=== PATIENT | male | born 1955 | race Caucasian/White ===

== ENCOUNTER 2018-04-09 20:29 | Emergency (ER) | payer OTHER ==
--- NOTE | 2018-04-09 20:47 | PDOC ---
Rapid Medical Evaluation Time Seen by Provider: 04/09/18 20:46 Medical Evaluation: Allergies Allergy/AdvReac Type Severity Reaction Status Date / Time Penicillins Allergy Verified 03/07/15 14:49 04/09/18 20:48 This is a 63 year old male with CAD s/p stent, HTN, and kidney stones who presents with one day of left flank pain and dysuria. No fevers/chills. Alert, oriented, some distress secondary to pain. + Left flank tenderness. -Labs including CBC, CMP, UA/culture -To Main ED for further evaluation Patient vomited in [facility] bathroom. 04/09/18 20:59
[2018-04-09 20:51] VITALS: BP 145/70; PULSE 70; TEMP 98.1; BMI 25.0
[2018-04-09 21:31] LABS: URINE APPEARANCE CLEAR; URINE BILIRUBIN NEGATIVE (<2.0 mg/dL); URINE COLOR LTYELLOW; URINE GLUCOSE (UA) NEGATIVE (NEGATIVE); URINE KETONE NEGATIVE (NEGATIVE); URINE LEUK ESTERASE NEGATIVE (NEGATIVE); URINE NITRITE NEGATIVE (NEGATIVE); URINE PROTEIN NEGATIVE (NEGATIVE); URINE UROBILINOGEN NEGATIVE mg/dL (0.2-1.0)
[2018-04-09 21:43] LABS: BASO % 0.5 % (0-2.0); EOS % 2.4 % (0-4.5); HEMATOCRIT 42.7 % (35.4-49); HEMOGLOBIN 14.3 GM/dL (11.7-16.9); LYMPH % 13.5 % (8-40); MCHC 33.5 g/dl (32.0-35.9); MEAN CELL VOLUME 89.7 fl (80-96); MEAN PLT VOLUME 8.5 fl (7.5-11.1); MONO % 7.8 % (3.8-10.2); NEUT % 75.8 % (42.8-82.8); PLATELET COUNT 257 K/MM3 (134-434); RBC 4.76 M/mm3 (4.00-5.60); RDW 12.5 % (11.9-15.9); WHITE BLOOD COUNT 9.3 K/mm3 (4.0-10.0)
[2018-04-09 22:11] LABS: ALBUMIN 4.2 g/dl (3.4-5.0); ALK PHOS 87 U/L (45-117); ANION GAP 5 (8-16); BILIRUBIN,TOTAL 0.5 mg/dL (0.2-1.0); BLOOD UREA NITROGEN 17 mg/dL (7-18); CALCIUM 9.1 mg/dL (8.5-10.1); CHLORIDE 106 mmol/L (98-107); CO2 30 mmol/L (21-32); GLUCOSE,RANDOM 109 mg/dL (74-106); POTASSIUM 4.2 mmol/L (3.5-5.1); SGOT/AST 17 U/L (15-37); SGPT/ALT 18 U/L (12-78); SODIUM 141 mmol/L (136-145); TOT PROT 7.9 g/dl (6.4-8.2)
--- NOTE | 2018-04-09 23:53 | PDOC ---
History of Present Illness - History of Present Illness Initial Comments: 04/10/18 01:35 The patient is a 63 year old male with a significant PMH of kidney stone, CAD (s /p cardiac cath & stent at [facility] 11/05), and HTN who presents to the emergency department with left flank pain beginning approximately yesterday. The patient reports he suddenly developed left flank pain yesterday which has been worsening today with associated urinary hesitancy, nausea, and two episodes of NBNB vomiting. The patient endorses chills but denies fever. He reports his left flank pain feels similar to his previous kidney stone. The patient reports taking his prescribed Aspirin and Plavix earlier today. The patient denies diarrhea and constipation. The patient denies chest pain, shortness of breath, headache and dizziness. Denies dysuria, frequency, urgency and hematuria. Denies dark or bloody stools Allergies: NKA Past surgical history: Cardiac cath & Stent placement x1 (10/2017). Social history: No reported cigarette, alcohol, or drug use. PCP: Dr. Powell <Rachell Lucero - Last Filed: 04/10/18 01:35> <Errol Park - Last Filed: 04/10/18 02:11> - General Chief Complaint: Pain Stated Complaint: LEFT SIDE PAIN Time Seen by Provider: 04/09/18 20:46 Past History - Past Medical History COPD: No HTN: Yes Hypercholesterolemia: Yes - Surgical History Cardiac Surgery: Yes (stent 11/05) - Suicide/Smoking/Psychosocial Hx Smoking History: Never smoked Hx Alcohol Use: No Substance Use Type: None <Rachell Lucero - Last Filed: 04/10/18 01:35> <Errol Park - Last Filed: 04/10/18 02:11> - Past Medical History Allergies/Adverse Reactions: Allergies Allergy/AdvReac Type Severity Reaction Status Date / Time Penicillins Allergy Verified 04/09/18 20:47 Home Medications: Ambulatory Orders Amlodipine Besylate [Norvasc -] 5 mg PO DAILY #30 tablet 06/11/14 Tamsulosin HCl [Flomax] 0.4 mg PO HS #10 capsule 03/07/15 Aspirin 81 mg PO DAILY 04/09/18 Oxycodone HCl/Acetaminophen [Percocet 5-325 mg Tablet] 1 tab PO Q8H PRN #8 tablet MDD 3 tabs 04/10/18 Tamsulosin HCl [Flomax -] 0.4 mg PO DAILY #5 capsule 04/10/18 Review of Systems - Review of Systems Comments:: 04/10/18 01:36 GENERAL/CONSTITUTIONAL: (+) Chills. No fever. No weakness. HEAD, EYES, EARS, NOSE AND THROAT: No change in vision. No ear pain or discharge. No sore throat. GASTROINTESTINAL: No nausea, vomiting, diarrhea or constipation. GENITOURINARY: (+) urnary hesitancy. No dysuria, frequency, or change in urination. CARDIOVASCULAR: No chest pain or shortness of breath. RESPIRATORY: No cough, wheezing, or hemoptysis. MUSCULOSKELETAL: (+) Left flank pain. No joint or muscle swelling or pain. No neck pain. SKIN: No rash NEUROLOGIC: No headache, vertigo, loss of consciousness, or change in strength/ sensation. ENDOCRINE: No increased thirst. No abnormal weight change. HEMATOLOGIC/LYMPHATIC: No anemia, easy bleeding, or history of blood clots. ALLERGIC/IMMUNOLOGIC: No hives or skin allergy. <Nassef,Yomna - Last Filed: 04/10/18 01:35> *Physical Exam - Vital Signs Last Vital Signs Temp Pulse Resp BP Pulse Ox 98.1 F 70 18 145/70 99 04/09/18 20:49 04/09/18 20:49 04/09/18 20:49 04/09/18 20:49 04/09/18 20:49 - Physical Exam Comments: 04/10/18 01:36 GENERAL: Awake, alert, and fully oriented, in no acute distress HEAD: No signs of trauma EYES: PERRLA, EOMI, sclera anicteric, conjunctiva clear ENT: Auricles normal inspection, hearing grossly normal, nares patent, oropharynx clear without exudates. Moist mucosa NECK: Normal ROM, supple, no lymphadenopathy, JVD, or masses LUNGS: Breath sounds equal, clear to auscultation bilaterally. No wheezes, and no crackles HEART: Regular rate and rhythm, normal S1 and S2, no murmurs, rubs or gallops ABDOMEN: Soft, nontender, normoactive bowel sounds. No guarding, no rebound. No masses. mild L CVAT EXTREMITIES: Normal range of motion, no edema. No clubbing or cyanosis. No cords , erythema, or tenderness BACK: No midline spinal tenderness in cervical/thoracic/lumbar region NEUROLOGICAL: Normal speech, cranial nerves intact, negative pronator drift, 5/ 5 strength in all 4 extremities, normal sensation to light touch in all 4 extremities, normal cerebellar exam, normal gait, normal reflexes and tone SKIN: Warm, Dry, normal turgor, no rashes or lesions noted. <Rachell Lucero - Last Filed: 04/10/18 01:35> - Vital Signs Last Vital Signs Temp Pulse Resp BP Pulse Ox 98.1 F 70 18 145/70 99 04/09/18 20:49 04/09/18 20:49 04/09/18 20:49 04/09/18 20:49 04/09/18 20:49 <Errol Park - Last Filed: 04/10/18 02:11> Moderate Sedation - Procedure Monitoring Vital Signs: Vital Signs Temp Pulse Resp BP Pulse Ox 98.1 F 70 18 145/70 99 04/09/18 20:49 04/09/18 20:49 04/09/18 20:49 04/09/18 20:49 04/09/18 20:49 <Rachell Lucero - Last Filed: 04/10/18 01:35> - Procedure Monitoring Vital Signs: Vital Signs Temp Pulse Resp BP Pulse Ox 98.1 F 70 18 145/70 99 04/09/18 20:49 04/09/18 20:49 04/09/18 20:49 04/09/18 20:49 04/09/18 20:49 <Errol Park - Last Filed: 04/10/18 02:11> ED Treatment Course - LABORATORY CBC & Chemistry Diagram: 04/09/18 20:51 04/09/18 20:51 - ADDITIONAL ORDERS Additional order review: Laboratory Results 04/09/18 04/09/18 21:00 20:51 Sodium 141 Potassium 4.2 Chloride 106 Carbon Dioxide 30 Anion Gap 5 L BUN 17 D Creatinine 1.0 D Creat Clearance w eGFR > 60 Random Glucose 109 H Calcium 9.1 Total Bilirubin 0.5 AST 17 ALT 18 D Alkaline Phosphatase 87 Total Protein 7.9 Albumin 4.2 Urine Color Ltyellow Urine Appearance Clear Urine pH 6.0 D Ur Specific Gobles 1.016 Urine Protein Negative Urine Glucose (UA) Negative Urine Ketones Negative Urine Blood Negative Urine Nitrite Negative Urine Bilirubin Negative Urine Urobilinogen Negative Ur Leukocyte Esterase Negative 04/09/18 20:51 RBC 4.76 MCV 89.7 MCHC 33.5 RDW 12.5 MPV 8.5 Neutrophils % 75.8 Lymphocytes % 13.5 Monocytes % 7.8 Eosinophils % 2.4 Basophils % 0.5 - RADIOLOGY Radiology Studies Ordered: Category Date Time Status ABDOMEN & PELVIS CT W/O CONTR [CT] Stat CT Scan 04/09/18 23:14 Ordered <Rachell Lucero - Last Filed: 04/10/18 01:35> - LABORATORY CBC & Chemistry Diagram: 04/09/18 20:51 04/09/18 20:51 - ADDITIONAL ORDERS Additional order review: Laboratory Results 04/09/18 04/09/18 21:00 20:51 Sodium 141 Potassium 4.2 Chloride 106 Carbon Dioxide 30 Anion Gap 5 L BUN 17 D Creatinine 1.0 D Creat Clearance w eGFR > 60 Random Glucose 109 H Calcium 9.1 Total Bilirubin 0.5 AST 17 ALT 18 D Alkaline Phosphatase 87 Total Protein 7.9 Albumin 4.2 Urine Color Ltyellow Urine Appearance Clear Urine pH 6.0 D Ur Specific Gobles 1.016 Urine Protein Negative Urine Glucose (UA) Negative Urine Ketones Negative Urine Blood Negative Urine Nitrite Negative Urine Bilirubin Negative Urine Urobilinogen Negative Ur Leukocyte Esterase Negative 04/09/18 20:51 RBC 4.76 MCV 89.7 MCHC 33.5 RDW 12.5 MPV 8.5 Neutrophils % 75.8 Lymphocytes % 13.5 Monocytes % 7.8 Eosinophils % 2.4 Basophils % 0.5 - Medications Given in the ED: ED Medications Discontinued Medications Generic Name Dose Route Start Last Admin Trade Name Freq PRN Reason Stop Dose Admin Oxycodone/Acetaminophen 2 combo 04/09/18 23:13 04/10/18 00:32 Percocet 5/325 - PO 04/09/18 23:14 2 combo ONCE ONE Administration <Errol Park - Last Filed: 04/10/18 02:11> Medical Decision Making - Medical Decision Making 04/09/18 23:51 63-year-old male with a history of renal colic, coronary artery disease status post stent, hypertension presents to the emergency department with 1 day of left flank pain that feels like his previous renal colic. Vitals unremarkable. Exam with mild left CVA tenderness to palpation. Initial workup done by [facility] reveals normal labs and normal urinalysis with no blood. Nonetheless, we'll obtain a spiral CT to evaluate for renal colic, treat pain and reassess. 04/10/18 01:24 Pain significantly improved with Percocet. CT scan of abdomen and pelvis without contrast reveals a 3 mm stone in the left UVJ consistent with renal colic. Labs and urinalysis within normal limits, no evidence of infection in UA. Will provide referral for urologist, give pain medication and Flomax for discharge. Patient feels much better appears clinically well, requests discharge home. I discussed the physical exam findings, ancillary test results and final diagnoses with the patient. I answered all of the patient's questions. The patient was satisfied with the care received and felt comfortable with the discharge plan and treatment plan. The patient will call their primary care physician within 24 hours to arrange follow-up and will return to the Emergency Department with any new, persistent or worsening symptoms. <Rachell Lucero - Last Filed: 04/10/18 01:35> *DC/Admit/Observation/Transfer - Discharge Dispostion Decision to Admit order: No - Attestations Physician Attestion: 04/10/18 01:28 I, Dr. Rachell Lucero MD, attest that this document has been prepared under my direction and personally reviewed by me in its entirety. I further attest, that it accurately reflects all work, treatment, procedures and medical decision -making performed by me. <Rachell Lucero - Last Filed: 04/10/18 01:35> - Attestations Scribe Attestion: 04/10/18 02:11 Documentation prepared by Errol Park, acting as medical billing supervisor for Rachell Lucero MD. <Errol Park - Last Filed: 04/10/18 02:11> Diagnosis at time of Disposition: Renal colic on left side - Discharge Dispostion Disposition: HOME Condition at time of disposition: Stable - Prescriptions Prescriptions: Oxycodone HCl/Acetaminophen [Percocet 5-325 mg Tablet] 1 tab PO Q8H PRN #8 tablet MDD 3 tabs PRN Reason: Pain Tamsulosin HCl [Flomax -] 0.4 mg PO DAILY #5 capsule - Referrals Referrals: Diana South MD [Primary Care Provider] - Antonino Silva MD [Staff Physician] - - Patient Instructions Printed Discharge Instructions: Kidney Stones -- Adult Additional Instructions: Call Dr. Silva's office for a follow up appointment with urology within 1 week. Take the pain medication prescribed (percocet) as needed for pain. Do not take percocet if you are driving as it can make your dizzy or drowsy. Take tamsulosin daily until the stone passes. Follow up with your primary doctor within 1 week. Return to the emergency department if you have any new, worsening , or concerning symptoms. Print Language: CHINESE - Post Discharge Activity
--- NOTE | 2018-04-13 12:36 | PDOC ---
Patient Follow-up (Call Back) - Post ED Follow - Up Condition at time of discharge: Stable Disposition at time of original discharge: HOME Reason for Call Back: Abnwl. Microbiology (+ucx sen to macrobid,levaquin and penicillin, pt not on abx Called and l/m to call back)
--- NOTE | 2018-04-14 08:27 | PDOC ---
Patient Follow-up (Call Back) - Post ED Follow - Up Condition at time of discharge: Stable Disposition at time of original discharge: HOME Reason for Call Back: Abnwl. Microbiology (Patient is requiring antibiotics. I have left message on patient's cell phone for him to call back. Second attempt.)
--- NOTE | 2018-04-15 08:06 | PDOC ---
Patient Follow-up (Call Back) - Post ED Follow - Up Condition at time of discharge: Stable Disposition at time of original discharge: HOME Reason for Call Back: Abnwl. Microbiology (Called both numbers listed and unable to contact patient. At this time patient will receive a certified letter in regards to urine culture report and patient requiring antibiotics. Certified letter #[id number])
== END 2018-04-10 01:44 | disposition home or self-care (01) ==
LOC: JER 20:29
DX: N13.2 Hydronephrosis with renal and ureteral calculous obstruction (principal); Z87.442 Personal history of urinary calculi; I25.10 Atherosclerotic heart disease of native coronary artery without angina pectoris; I10 Essential (primary) hypertension; Z95.5 Presence of coronary angioplasty implant and graft
CPT/HCPCS: 36415; 74176-TC; 80053; 81003; 85025; 87086; 87186; 99281-25